=== PATIENT | female | born 1970 | race Caucasian/White ===

== ENCOUNTER → 2023-12-22 09:11 | Outpatient (REF) | payer BC, SELFPAY | LOC: WDC 09:11 | PROVIDERS: ATTENDING PHYSICIAN Family Medicine | DX: N63.20 Unspecified lump in the left breast, unspecified quadrant (principal); N63.21 Unspecified lump in the left breast, upper outer quadrant | CPT/HCPCS: 76642; 77061; 77065 ==

== ENCOUNTER → 2024-05-25 07:32 | Outpatient (REF) | payer BC, SELFPAY | LOC: WDC 07:32 | PROVIDERS: ATTENDING PHYSICIAN Nurse Practitioner Adult Health; FAMILY PHYSICIAN Family Medicine | DX: Z12.31 Encounter for screening mammogram for malignant neoplasm of breast (principal) | CPT/HCPCS: 77063; 77067 ==

== ENCOUNTER 2025-03-30 06:24 | Day surgery (SDC) | payer BC, SELFPAY | END 2025-03-30 14:37 | disposition home or self-care (01) | LOC: GI 06:24 | PROVIDERS: ATTENDING PHYSICIAN Internal Medicine Gastroenterology; FAMILY PHYSICIAN Family Medicine | DX: Z12.11 Encounter for screening for malignant neoplasm of colon (principal); Z80.0 Family history of malignant neoplasm of digestive organs; K64.8 Other hemorrhoids; D12.3 Benign neoplasm of transverse colon; D12.2 Benign neoplasm of ascending colon | CPT/HCPCS: 45385; 88305 ==